=== PATIENT | male | born 1945 | race Caucasian/White ===

== ENCOUNTER 2017-06-28 08:26 | Day surgery (SDC) | payer MEDICARE ==
[2017-06-24 11:52] VITALS: BMI 28.7
[~2017-06-28 08:26] MED LIST: LACTATED RINGERS 1,000 ML IV SCH; LIDOCAINE 1% 20 ML VIAL (10MG/ML) FOR IV START INTRADERMA PRN
[2017-06-28 08:51] VITALS: RESP 16; TEMP 97.9
--- NOTE | 2017-06-28 09:22 | P.GSHP ---
History of Present Illness H&P Date: 06/28/17 Chief Complaint: Screening colonoscopy, GI bleed This is a 72-year-old male perforated ulcer. Patient has had issues with some rectal bleeding and hemorrhoids. He presents today for screening colonoscopy. His last colonoscopy was over 77 years ago. 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 PROSTATE CANCER. DDD. USES CPAP History of Any Multi-Drug Resistant Organisms: None Reported Past Surgical History: Cholecystectomy, Prostate Surgery Additional Past Surgical History / Comment(s): COLONOSCOPY. BILAT CATARACTS Past Anesthesia/Blood Transfusion Reactions: No Reported Reaction Smoking Status: Former smoker - Past Family History Father Family Medical History: No Reported History Medications and Allergies Home Medications Medication Instructions Recorded Confirmed Type Aspirin [Adult Low Dose Aspirin EC] 81 mg PO DAILY 06/24/17 06/28/17 History Clopidogrel [Plavix] 75 mg PO DAILY 06/24/17 06/28/17 History Hydrochlorothiazide 12.5 mg PO DAILY 06/24/17 06/28/17 History [Hydrochlorothiazide] Losartan Potassium 100 mg PO DAILY 06/24/17 06/28/17 History Multivitamin [Men's Multi-Vitamin] 1 each PO DAILY 06/24/17 06/28/17 History Simvastatin [Simvastatin] 40 mg PO DAILY 06/24/17 06/28/17 History Allergies Allergy/AdvReac Type Severity Reaction Status Date / Time No Known Allergies Allergy Verified 06/24/17 11:45 Surgical - Exam Vital Signs Temp Pulse Resp BP Pulse Ox 97.9 F 97 16 177/95 95 06/28/17 08:46 06/28/17 08:46 06/28/17 08:46 06/28/17 08:46 06/28/17 08:46 - General well developed, no distress - Eyes PERRL - ENT normal pinna - Neck no masses - Respiratory normal expansion - Cardiovascular Rhythm: regular - Abdomen Abdomen: soft, non tender Assessment and Plan Plan: 9-year-old male with some rectal bleeding. We'll perform screening colonoscopy.
[2017-06-28] MEDS ORDERED: PROPOFOL 10 MG/ML 20 ML VIAL IV ONE (09:23)
--- NOTE | 2017-06-28 09:35 | P.OP ---
Date of Procedure: 06/28/17 Preoperative Diagnosis: Screening colonoscopy gi bleed Postoperative Diagnosis: Internal hemorrhoids Procedure(s) Performed: Colonoscopy Anesthesia: MAC Surgeon: Thanh Rascon Pathology: none sent Condition: stable Disposition: PACU Description of Procedure: The patient's placed on the endoscopy table in the lateral position. He received IV sedation. Digital rectal exam was performed which revealed internal hemorrhoids. The prostate was symmetric without nodules. The flexible colonoscope was then placed patient anus passed rotator entire colon. The ileocecal valve was visualized. The cecum, ascending and transverse colon appeared normal. The descending and sigmoid colon appeared normal. The scope was then brought back the rectum and this appeared normal. Scope was withdrawn through the anus and there were internal hemorrhoids noted.
[2017-06-28 10:03] VITALS: BP 129/84; PULSE 72
== END 2017-06-28 10:28 | disposition home or self-care (01) ==
LOC: ORWHC2ENDO 08:26
PROVIDERS: ATTEND Surgery
DX: K92.2 Gastrointestinal hemorrhage, unspecified (principal); K64.8 Other hemorrhoids; Z85.46 Personal history of malignant neoplasm of prostate; I10 Essential (primary) hypertension; E78.5 Hyperlipidemia, unspecified; Z87.891 Personal history of nicotine dependence; Z86.73 Personal history of transient ischemic attack (TIA), and cerebral infarction without residual deficits; G47.33 Obstructive sleep apnea (adult) (pediatric); Z99.89 Dependence on other enabling machines and devices; Z79.02 Long term (current) use of antithrombotics/antiplatelets; Z79.82 Long term (current) use of aspirin; Z79.899 Other long term (current) drug therapy
CPT/HCPCS: 45378; J2704